=== PATIENT | male | born 1985 ===

== ENCOUNTER 2019-11-19 13:35 | Emergency (ER) | payer SELFPAY ==
[2019-11-19 13:58] VITALS: BP 155/78; PULSE 86; RESP 18; TEMP 36.9; O2SAT 95; BMI 42.7
--- NOTE | 2019-11-19 14:11 | US_ITS ---
WS: [id number] SCROTAL ULTRASOUND EXAMINATION CLINICAL INFORMATION: abcess COMPARISON: None. FINDINGS: TESTES Normal in size and echotexture. Scrotal skin thickening. Small hypoechoic fluid collection left scrot al wall consistent with phlegmon/abscess. This is complex appearance in appearance and Does not appea r easily drainable. Heterogeneous collection measures 1.4 x 2.0 x 3.1 cm Color Doppler: Normal color Doppler flow pattern. Right testes size: 4.5 cm x 2.8 cm x 2.8 cm. Left testes size: 4.0 cm x 2.8 cm x 2.9 cm. EPIDIDYMIDES Normal in size and echotexture, without focal lesion. Color Doppler: Normal color Doppler flow pattern. Right epididymis size: 1.3 cm x cm x cm. Left epididymitis size: 1.0 cm x cm x cm. HYDROCELE Small left VARICOCELE None. OTHER FINDINGS None. US/US scrotum [id number] IMPRESSION: 1. Testicles are normal in size and echotexture. 2. Diffuse scrotal wall thickening with ill-defined edematous collection in th e left scrotal wall measuring 2.0 x 1.4 x 3.1 cm consistent with complex phlegm on/abscess. This does not appear easily drainable. 3. Small left hydrocele.
--- NOTE | 2019-11-19 14:12 | W.ED.SKABFB ---
HPI - Skin/Abscess/Foreign Bdy General: Chief complaint: Skin/Abscess/Foreign Body Stated complaint: testicle pain Time Seen by Provider: 11/19/19 13:56 History of Present Illness: HPI narrative: Patient is an abscess down groin area that is extending back to his buttock that he says is draining is painful radiates into his groin down his leg on that side just did not feel good. complaint: abscess/boil Onset (ago): day(s) Tetanus up to date: unsure Location: genitals Severity: moderate Severity scale (1-10): 6 Quality: aching Pain Consistency: constant Relieving factors: immobilization Exacerbating factors: movement Associated symptoms: Deny chills, fever(s), nausea or vomiting Review of Systems Const: Denies: fever(s), chills or body aches Eyes: Denies: change in vision or blurry vision ENMT: Denies: throat pain or nasal congestion Card: Denies: chest pain or dyspnea on exertion Resp: Denies: dyspnea, productive cough or non-productive cough GI: Denies: abdominal pain, nausea or vomiting : Denies: difficulty urinating Musc: Denies: extremity pain Skin/Breast: Reports: other (Abscess is draining scrotal area left side); Denies: rash Neuro: Denies: headache(s) Psych: Denies: anxiety or depression Valeriano/Lymph: Denies: easy bruising Physical Exam Const: COMMON NORMALS: no acute distress, average body habitus and patient oriented x3 HENMT: COMMON NORMALS: normocephalic HEAD & SCALP: normal to inspection and normocephalic FACE & SINUS: normal facial exam Eye: COMMON NORMALS: conjunctivae normal GENERAL EYE: appearance normal, both eyes and all related structures CONJUNCTIVA: Yes conjunctivae normal Neck/C-Spine: COMMON NORMALS: no JVD Chest: COMMONS NORMALS: normal inspection of the chest Resp: COMMON NORMALS: normal respiratory effort and clear to auscultation bilaterally AUSCULTATION: clear to auscultation bilaterally Cardio: COMMON NORMALS: no JVD, regular rate and regular rhythm RATE: regular rate RHYTHM: regular rhythm GI: COMMON NORMALS: Normal to inspection, nondistended, normoactive bowel sounds present : SCROTUM: Yes other (Patient has erythema to the left scrotal area has bloody drainage and has some erythema in the folds of his thigh to buttock area.) Extremity: COMMON NORMALS: normal to inspection and full ROM Neuro: COMMON NORMALS: patient oriented x3 Course Vital Signs: Vital signs: Vital Signs Temperature 98.5 F 11/19/19 13:58 Pulse Rate 75 11/19/19 15:30 Respiratory Rate 18 11/19/19 15:30 Blood Pressure 138/83 11/19/19 15:30 Pulse Oximetry 96 11/19/19 15:30 MDM - Skin/Abscess/Foreign Bdy MDM Narrative: Medical decision making narrative: Spoke with Dr. Maxwell concerning radiology report labs. He asked me to go ahead and place gauze nares for drainage to keep the abscess open and follow-up with clinic if no significant improvement noted. I was able to put little bit of the packing into the the draining area and there is 2 holes that are draining I was able to squeeze out some of the pus area is slightly firm Lab Data: Labs: Lab Results 11/19/19 11/19/19 11/19/19 Range/Units 14:49 14:49 14:49 WBC 14.7 H (4.0-10.0) 10^3/ uL RBC 5.22 (4.1-5.3) 10^6/u L Hgb 14.9 (11.7-16.6) g/dL Hct 46.0 (42.0-52.0) % MCV 88.1 (80-94) fL MCH 28.5 (28.0-34.0) pg MCHC 32.4 (30.0-36.0) g/dL RDW 12.0 L (12.1-15.1) % Plt Count 137 (130-400) 10^3/c mm MPV 13.9 H (7.4-10.4) fL Neut % (Auto) 72.7 % Lymph % (Auto) 15.3 % Spencer % (Auto) 7.3 % Eos % (Auto) 3.9 % Baso % (Auto) 0.3 % Neut # (Auto) 10.70 H (1.8-7.7) 10^3/u L Lymph # (Auto) 2.3 (0.8-4.8) 10^3/u L Spencer # (Auto) 1.1 H (0.2-0.9) 10^3/u L Eos # (Auto) 0.6 (0.0-0.8) 10^3/u L Baso # (Auto) 0.0 (0.0-0.1) 10^3/u L Nucleated RBC % (a uto) 0 % Nucleated RBCs # 0.0 /100WBC Sodium 136 (136-145) mmol/L Potassium 4.1 (3.5-5.1) mmol/L Chloride 100 (98-107) mmol/L Carbon Dioxide 26 (22-29) mmol/L Anion Gap 14.1 (5-19) BUN 13 (6-20) mg/dL Creatinine 1.2 (0.7-1.2) mg/dL GFR Calculation 68.9 L (90-130) mL/min Glucose 100 (65-115) mg/dL Calculated Osmolal ity 278 L (285-295) mOsm/k g Lactic Acid 0.8 (0.5-2.2) mmol/L Calcium 9.1 (8.5-10.5) mg/dL Discharge Plan Discharge Patient Disposition: Home Clinical Impression: Abscess of skin or subcutaneous tissue Qualifiers: Site of cutaneous abscess: other site Qualified Code(s): L02.818 - Cutaneous abscess of other sites Condition: Stable Prescriptions: New hydrocodone-acetaminophen 7.5-325 mg tablet 1 tab PO Q8H PRN (Reason: pain) Qty: 10 RF: 0 Bactrim DS 800-160 mg tablet 1 tab PO BID 10 Days Qty: 20 RF: 0 No Action No Known Home Medications RF: 0 Discharge Orders: Discharge Order (Routine); Ordered 11/19/19 Ordered By: Tyrell Nicole Referrals: Monica Lazcano MD [Primary Care Provider] - Discharge Diet: Usual diet Discharge Activity: Increase activity as tolerated Patient Instructions: Abscess (ED) Activity Restrictions/Additional Instructions: Follow-up with medical provider as directed. Take medications as prescribed. Return to the ER or your medical provider if condition worsens. Please read and understand discharge instructions. If any questions ask please. Leave packing in 12 to 24 hours. Follow-up Dr. Maxwell's office if no significant provement noted Coding Level of Care Code ED Siderographist for Armando Fwd Exam Comprehensive
[2019-11-19 14:15] VITALS: BP 157/73; PULSE 83; RESP 18; O2SAT 97
[2019-11-19] MEDS: HYDROcodone-acetaminophen 10-325 mg Tablet 1 TAB PO (14:25)
[2019-11-19 14:59] LABS: Basophils % 0.3 %; Eosinophils # 0.6 10^3/uL (0.0-0.8); Eosinophils % 3.9 %; Hemoglobin 14.9 g/dL (11.7-16.6); Lymphocytes # 2.3 10^3/uL (0.8-4.8); Lymphocytes % 15.3 %; Mean Corpuscular HGB Conc 32.4 g/dL (30.0-36.0); Mean Corpuscular Hemoglobin 28.5 pg (28.0-34.0); Mean Corpuscular Volume 88.1 fL (80-94); Mean Platelet Volume 13.9 fL (7.4-10.4); Monocytes # 1.1 10^3/uL (0.2-0.9); Monocytes % 7.3 %; Neutrophils % 72.7 %; Nucleated Red Blood Cells % 0 %; Platelet Count 137 10^3/cmm (130-400); Red Blood Count 5.22 10^6/uL (4.1-5.3); White Blood Count 14.7 10^3/uL (4.0-10.0)
[2019-11-19] MEDS: cefTRIAXone 1,000 mg SDV 1000 MG IM (15:09)
[2019-11-19 15:12] VITALS: BP 153/89; PULSE 66; RESP 18; O2SAT 97
[2019-11-19 15:15] LABS: Anion Gap 14.1 (5-19); Blood Urea Nitrogen 13 mg/dL (6-20); Calcium 9.1 mg/dL (8.5-10.5); Carbon Dioxide 26 mmol/L (22-29); Chloride 100 mmol/L (98-107); Glomerular Filtration Rate 68.9 mL/min (90-130); Glucose 100 mg/dL (65-115); Osmolality Calculated 278 mOsm/kg (285-295); Potassium 4.1 mmol/L (3.5-5.1); Sodium 136 mmol/L (136-145)
[2019-11-19 15:16] LABS: Lactic Sepsis W/Reflex 0.8 mmol/L (0.5-2.2)
[2019-11-19 15:30] VITALS: BP 138/83; PULSE 75; RESP 18; O2SAT 96
[2019-11-19 15:46] LABS: Slide Review Slide Review Perform
[2019-11-19 16:16] VITALS: BP 151/100; PULSE 91; RESP 18; TEMP 36.9; O2SAT 95
== END 2019-11-19 16:16 | disposition home or self-care (01) ==
PROVIDERS: Emergency Provider Nurse Practitioner Family; PCP Family Medicine
DX: L02.818 Cutaneous abscess of other sites (principal)
CPT/HCPCS: 12345; 36415; 76870; 80048; 83605; 85025; 87040; 87070; 87077; 87184; 87186; 96372; 99282; 99283; J0696

== ENCOUNTER 2019-12-12 15:49 | Emergency (ER) | payer SELFPAY ==
[2019-12-12 16:02] VITALS: PULSE 98; RESP 18; TEMP 37.1; O2SAT 98; BMI 39.3
--- NOTE | 2019-12-12 16:05 | W.ED.SKABFB ---
HPI - Skin/Abscess/Foreign Bdy General: Chief complaint: Animal Bite Stated complaint: POSSIBLE SPIDER BITE? Time Seen by Provider: 12/12/19 16:03 Source: patient Mode of arrival: ambulatory Limitations: no limitations History of Present Illness: HPI narrative: Patient is a 34-year-old male who presents to ED today with 2 separate complaints. His first complaint is a possible spider bite located to his right posterior thigh that he noticed a few days ago. He states lesion has not been draining but continues to worsen in size and pain. He describes the pain is burning in nature. Patient tells me when the lesion started off it first look like a pimple and he assumed it was an ingrown hair but states it has continued to grow. He has no history of MRSA abscesses. Patient was seen here last month for a left scrotal phlegmon. He states this lesion is fully healed. Patient is not been running fevers or chills. Patient also has a separate complaint of right-sided facial swelling. He states he chronically has dental pain due to very poor dentition. He is not complaining of neck pain or headache. He has not noticed any swelling down into his neck. He denies trouble eating, drinking, controlling secretions. MD complaint: abscess/boil and other (dental pain/facial swelling) Tetanus up to date: yes Pain Consistency: constant Relieving factors: none Exacerbating factors: none Physical Exam Const: COMMON NORMALS: no acute distress, patient oriented x3, no limitations and alert NUTRITIONAL APPEARANCE: obese ORIENTATION/CONSCIOUSNESS: Yes oriented to person, Yes oriented to place and Yes oriented to time HENMT: COMMON NORMALS: normocephalic, atraumatic, hearing grossly normal bilaterally, external ears normal, EAC's normal, TM's normal bilaterally, Normal external nose present, moist oral mucous membranes and oropharynx normal HEAD & SCALP: normal to inspection, normocephalic and atraumatic FACE & SINUS: other (pt with mild swelling to R side of face; no drainable abscess formation) NOSE: Normal external nose present EXTERNAL EAR: Yes external ears normal EXTERNAL AUDITORY CANAL: EAC's normal TYMPANIC MEMBRANE: TM's normal bilaterally MOUTH: Normal oral and palatal mucosa present, lip normal, tongue normal and other (overall very poor dentition; no swelling to floor of mouth) THROAT: posterior oropharynx normal, tonsils normal and uvula midline Neck/C-Spine: COMMON NORMALS: full ROM, no lymphadenopathy and no meningeal signs GENERAL: Yes normal visual inspection CERVICAL SPINE: Yes cervical ROM normal Resp: COMMON NORMALS: normal respiratory effort and clear to auscultation bilaterally AUSCULTATION: clear to auscultation bilaterally Cardio: COMMON NORMALS: regular rate and regular rhythm RATE: regular rate RHYTHM: regular rhythm Neuro: RAND COMA SCALE: document GCS findings [place] coma scale eye opening: Spontaneous [place] coma scale verbal response: Orientated [place] coma scale motor response: Obey commands Rand coma scale total score: 15 COMMON NORMALS: patient oriented x3 SENSORIUM/ORIENTATION: Yes alert, Yes oriented to person, Yes oriented to place and Yes oriented to time MENINGEAL SIGNS: Yes no meningeal signs Skin: OTHER: pt has an area measuring approx 7x7cm to his R upper posterior thigh; area is erythematous with no surrounding cellulitis; very indurated; center is slightly hemorrhagic; there is no drainage/fluctuance noted Course Vital Signs: Vital signs: Vital Signs Temperature 98.7 F 12/12/19 16:02 Pulse Rate 98 12/12/19 16:02 Respiratory Rate 18 12/12/19 16:02 Pulse Oximetry 98 12/12/19 16:02 MDM - Skin/Abscess/Foreign Bdy MDM Narrative: Medical decision making narrative: Dr. Ren and I looked at abscess with bedside US and found several small loculations present but there was no discernable abscess formation at this time to drain. I will place patient on Bactrim for the abscess as I feel this would provide the best coverage. In regards to his dental pain, unfortunately Bactrim would not be a great choice. Patient has allergies to all penicillins. We will go ahead and cover his dental pain and infection with clindamycin. Recommend he follow-up with a dentist as soon as possible. Discussed how even though there is no discernible abscess at this visit and despite antibiotics, he may still be forced to return in 24 to 48 hours for incision and drainage of his abscess. Patient verbalizes understanding and agrees to return if abscess worsens. Discharge Plan Discharge Patient Disposition: Home Clinical Impression: Abscess of right thigh, Dental infection Condition: Stable Prescriptions: New clindamycin HCl 300 mg capsule 300 mg PO Q6H 7 Days Qty: 28 RF: 0 Bactrim DS 800-160 mg tablet 2 tab PO BID 7 Days Qty: 28 RF: 0 No Action hydrocodone-acetaminophen 7.5-325 mg tablet 1 tab PO Q8H PRN (Reason: pain) Qty: 10 RF: 0 Discharge Orders: Discharge Order (Routine); Ordered 12/12/19 Ordered By: Zoya Hernandez Referrals: Monica Lazcano MD [Primary Care Provider] - Patient Instructions: Dental Caries (ED), Brown Recluse Spider Bite (ED), Abscess (ED), Skin Abscess, Dental Abscess Activity Restrictions/Additional Instructions: As discussed abscess is not amendable for drainage at this time. Please begin your antibiotics immediately. You may do warm Epson salt soaks and compresses to help facilitate drainage. You may need to return to the emergency department in 24 to 48 hours if abscess continues to worsen as drainage may be indicated at that time. You may return sooner if abscess quickly worsens, you begin running fevers of 100.4 or greater, generally feeling ill, or any other concerns you may have. Discharge Date/Time: 12/12/19 16:42 Coding Level of Care Code ED Licensing Analyst for Chg Fwd Exam Detailed
== END 2019-12-12 16:42 | disposition home or self-care (01) ==
PROVIDERS: Emergency Provider Physician Assistant; PCP Family Medicine
DX: L02.415 Cutaneous abscess of right lower limb (principal); K04.7 Periapical abscess without sinus
CPT/HCPCS: 12345; 99281